=== PATIENT | male | born 1980 | race Caucasian/White ===

== ENCOUNTER → 2019-08-11 09:55 | Outpatient (CLI) | payer OTHER, SELFPAY ==
--- NOTE | ~2019-08-11 | XR_ITS ---
XR ribs RT 2V w CXR 2V DATE: 08/11/2019 10:31 INDICATION: Right rib injury, pain TECHNIQUE: PA and lateral chest. 3 views of the right ribs. COMPARISON: None FINDINGS: No displaced right rib fracture is evident. Normal heart size. No hilar or mediastinal enlargement. No pulmonary infiltrate or consolidation, ple ural effusion or pulmonary vascular congestion or pneumothorax. IMPRESSION: No displaced recent rib fracture Reviewed, dictated and finalized at location B. ER TAPPER
--- NOTE | ~2019-08-11 | US_ITS ---
EXAMINATION: US abdomen complete DATE: 08/11/2019 10:31 INDICATION: Contusion of the abdominal wall. TECHNIQUE: Multiple grayscale and Doppler ultrasound images of the abdomen were obtained. COMPARISON: None FINDINGS: Abdominal aorta is normal in caliber. Inferior vena cava is normal. The visualized portions of the head and body of the pancreas are normal. The liver is normal without focal lesion. There is normal flow in main portal vein. The gallbladder is normal in size. No gallstones or gallbladder wall thickening. There was no sonographic Espinosa sign. The common duct is normal and measures 3 mm. The k idneys are normal in size. The spleen is normal in size. IMPRESSION: 1. Normal complete abdomen ultrasound. Reviewed, dictated and finalized at location A. ATIONAL THERAPIST
== END ==
PROVIDERS: PCP Physician Assistant; Visit Provider Physician Assistant
DX: S29.9XXA Unspecified injury of thorax, initial encounter (principal); X58.XXXA Exposure to other specified factors, initial encounter
CPT/HCPCS: 71045; 71101; 76700

== ENCOUNTER 2024-05-01 10:04 | Emergency (ER) | payer BC, SELFPAY ==
--- NOTE | 2024-05-01 10:10 | ED_ITS ---
HPI - Wound/Laceration General Chief Complaint: Wound/Laceration Stated Complaint: Cut Chin Time Seen by Provider: 05/01/24 10:10 Source: patient Mode of arrival: ambulatory Limitations: no limitations History of Present Illness HPI narrative: 43 y/o male presented for c/o laceration to the chin sustained just prior to arrival while playing hockey.States he was struck in the face by the puck. Laceration is not through and through, he reports teeth feel firm and intact. No treatment user acceptance tester. Says tetanus is within 5 years. Related Data Allergies Allergy/AdvReac Type Severity Reaction Status Date / Time Penicillins Allergy Unknown CHILD Unverified 05/01/24 10:11 Review of Systems Review of Systems: CONSTITUTIONAL: Denies fever, chills EYES: Denies visual changes, redness, or discharge. ENT: Denies epistaxis or dental trauma CARDIOVASCULAR: Denies chest pain, palpitations, or edema. RESPIRATORY: Denies cough or dyspnea. SKIN: per HPI NEUROLOGIC: Denies headache PMFSH Comments At time of signature, I have reviewed and agree with nursing past medical, surgical, social and family history unless otherwise noted. Please see nursing chart for further information. There is no relevant family history pertinent to the presenting complaint Exam Narrative: GENERAL: Well-appearing EYES: conjunctivae clear, and EOMI. ENT: Mucous membranes moist. Dentition intact. Oropharynx without edema, erythema or lesions. CHEST: Clear to auscultation. HEART: Regular rate and rhythm. SKIN: Warm, dry. linear laceration to chin (lower subunit) 1.7cm diameter, gaping, small amount bleeding. Nontender mandible. NEURO: Alert and oriented x3. HENMT: Face images: 1. location of laceration Course Course Emergency Course: Patient is aware of diagnosis, understands and agrees to treatment plan. Anticipatory guidance given. Patient agrees to follow-up as directed and is aware of reasons to seek care at the emergency department. Portions of this record may have been created with voice recognition software Level of Care: Express Care Visit Vital Signs Vital signs: Vital Signs Temperature 97.2 F L 05/01/24 10:11 Pulse Rate 80 05/01/24 10:11 Respiratory Rate 16 05/01/24 10:11 Blood Pressure 126/77 05/01/24 10:11 Pulse Oximetry 99 05/01/24 10:11 Temperature 97.2 F L 05/01/24 10:11 Pulse Rate 80 05/01/24 10:11 Respiratory Rate 16 05/01/24 10:11 Blood Pressure 126/77 05/01/24 10:11 Pulse Oximetry 99 05/01/24 10:11 Reviewed Procedures Laceration chin: Date: 05/01/24 Size (cm): 1.7 Depth: simple, single layer Local Anesthetic: lidocaine 1% Pre-repair: wound explored and irrigated (100mL) ====== Skin Level ====== Skin layer closed with: prolene Size (cm): 5-0 Number of sutures: 5 Technique: simple, interrupted ====== Subcutaneous Layer ====== ====== Muscle Layer ====== ====== Tendon Layer ====== Dressing: The procedure and its alternatives were reviewed with patient. Risks were reviewed with patient including infection and damage to nearby structures. Patient provided verbal informed consent. The patient was positioned appropria tely. Sterile drapes applied to maintain sterile field. Wound was explored for abnormalities including infection and foreign bodies. Sutures placed with wound edges approximated. Patient tolerated well, no complications. MDM - Wound/Laceration MDM Narrative Medical decision making narrative: Patient presented with laceration to the chin, 5 sutures applied with wound edges approximated. Patient tolerated well. He states tetanus is up-to-date. Rx cephalexin. Discussed physical exam findings. Advised supportive measures and signs/symptoms to go to the ER. Pt is appropriate for outpt treatment and f/u. Differential Diagnosis Differential diagnosis: Likely laceration, abrasion and avulsion of skin Discharge Plan Discharge Clinical Impression: Laceration Patient Disposition: Home, Self-Care Condition: Stable Instructions: Antibiotic Form, Care For Your Stitches (ED), Laceration (ED) Additional Instructions: Your sutures need to be removed in 7-10 days. You can return to the clinic to have the sutures removed, or you may contact your pcp. In the next 12 hours, allow a scab to start forming, then you may remove and wash as normal with soap and water. Do NOT wash with peroxide or alcohol. Take tylenol or ibuprofen at home for pain Take antibiotic as directed No sports until sutures are removed. Follow up with your PCP Go to the ER with any signs of infection such as redness, swelling, increased pain, or drainage. Prescriptions: New cephalexin 500 mg capsule 500 mg PO Q8H 5 Days Qty: 15 0RF Follow-up/Referrals: Han,SHERLYN Ceja [Primary Care Provider] -
[2024-05-01 10:11] VITALS: BP 126/77; PULSE 80; RESP 16; TEMP 36.2; O2SAT 99
== END 2024-05-01 11:23 | disposition home or self-care (01) ==
PROVIDERS: Emergency Provider Nurse Practitioner Family; PCP Physician Assistant
DX: S01.81XA Laceration without foreign body of other part of head, initial encounter (principal); W21.220A Struck by ice hockey puck, initial encounter; Y93.22 Activity, ice hockey
CPT/HCPCS: 12011; 99213; G0463; J2003